=== PATIENT | male | born 1945 | race Caucasian/White ===

== ENCOUNTER 2017-02-21 00:10 | Emergency (ER) | payer MEDICARE, OTHER ==
[~2017-02-21 00:10] MED LIST: Diphtheria,Pertussis(Acell),Tetanus Vaccine 0.5 ML SDV IM ONE; Lidocaine 1% 30 ML SDV INJECT ONE
[2017-02-21 00:20] VITALS: BP 133/93
--- NOTE | 2017-02-21 00:27 | EDM.PDOC ---
ED HPI GENERAL MEDICAL PROBLEM - General Chief Complaint: Head Injury Stated Complaint: AMBULANCE Time Seen by Provider: 02/21/17 00:22 Source of Information: Reports: Patient, EMS History Limitations: Reports: No Limitations - History of Present Illness INITIAL COMMENTS - FREE TEXT/NARRATIVE: EMS states was called to scene of pt falling in bar, no known LOC. pt unable to recall what happened. intox but co-op enough for suture and wants to go home states he's ok. - Related Data Allergies Allergy/AdvReac Type Severity Reaction Status Date / Time No Known Allergies Allergy Verified 02/21/17 00:20 Home Meds: Home Meds Docusate Sodium/Sennosides [Senna Plus] 1 tab PO BEDTIME #30 tablet 08/02/14 [Rx ] oxyCODONE 5 mg PO Q6H PRN #60 tablet 08/02/14 [Rx] Past Medical History - Past Surgical History Other Musculoskeletal Surgeries/Procedures:: right tib Fx 60 years ago Social & Family History - Tobacco Use Smoking Status *Q: Current Some Day Smoker Years of Tobacco use: 53 Used Tobacco, but Quit: No Month Tobacco Last Used: 07/22/2014 Second Hand Smoke Exposure: No - Alcohol Use Days Per Week of Alcohol Use: 2 Number of Drinks Per Day: 7 Total Drinks Per Week: 14 - Recreational Drug Use Recreational Drug Use: No - Living Situation & Occupation Living situation: Reports: , Single, Alone Occupation: Retired ED ROS GENERAL - Review of Systems Review Of Systems: ROS reveals no pertinent complaints other than HPI. ED EXAM, HEAD INJURY - Physical Exam Exam: See Below Exam Limited By: Intoxication General Appearance: Alert, WD/WN, Other (intox reasonable co-op) Head: Scalp Lacerations, Other (occiput 1 1/2" no active bleeding). No: Lopez' s Sign, Raccoon Eyes Nexus Criteria: Evidence of Intoxication. No: Posterior, Midline Cervical Tenderness, Altered Level of Consciousness, Focal Neurological Deficit, Painful Distraction Injuries Eyes: Bilateral Eye: PERRL (pupils ess ER @ 4mm) Ears: Normal External Exam, Normal Canal, Hearing Grossly Normal, Normal TMs Throat/Mouth: Normal Voice, No Airway Compromise Neck: Non-Tender, Full Range of Motion Respiratory: No Respiratory Distress Cardiovascular: Regular Rate, Rhythm GI/Abdominal Exam: Soft, Non-Tender Neurologic: No Motor/Sensory Deficits, Alert, Normal Mood/Affect, Oriented x 3 Skin: Normal Color, Warm/Dry - [place]air Coma Score Best Eye Response (Denair): (4) Open Spontaneously Best Verbal Response ([place]): (5) Oriented Best Motor Response ([place]): (6) Obeys Commands Nay Total: 15 ED LACERATION/WOUND & JAMI PROC - Laceration/Wound Repair Posterior Head Lac/wound length in cm: 3 (occiput) Appearance: Subcutaneous, Linear, Clean Anesthetic Type: Local Local Anesthesia - Lidocaine (Xylocaine): 1% Plain Local Anesthetic Volume: 5cc Skin Prep: Chlorhexidine (Hibiciens) Exploration/Debridement/Repair: Wound Explored, In a Bloodless Field, No Foreign Material Found Closed with: Sutures Suture Size: 3-0 Suture Type: Nylon, Interrupted Sterile Dressing Applied: None Tetanus Status Addressed: Yes Complications: No Course - Vital Signs Last Recorded V/S: Last Vital Signs Temp 36.2 C 02/21/17 00:14 Pulse 63 02/21/17 00:14 Resp 16 02/21/17 00:14 BP 133/93 H 02/21/17 00:14 Pulse Ox 98 02/21/17 00:14 - Orders/Labs/Meds Orders: Active Orders 24 hr Category Date Time Status Vaccines to be Administered [RC] PER UNIT ROUTINE Care 02/21/17 00:05 Active Meds: Medications Discontinued Medications Generic Name Dose Route Start Last Admin Trade Name Saniya PRN Reason Stop Dose Admin Diphtheria/Tetanus/Acell Pertussis 0.5 ml 02/21/17 00:05 Adacel IM 02/21/17 00:06 .ONCE ONE Lidocaine HCl 30 ml 02/21/17 00:05 Xylocaine-Mpf 1% INJECT 02/21/17 00:06 ONETIME ONE - Re-Assessments/Exams Free Text/Narrative Re-Assessment/Exam: 02/21/17 00:56 results discussed with pt who states he knows he is fine. PD arrived pt settled down. Departure - Departure Time of Disposition: 00:56 Disposition: Home, Self-Care 01 Condition: Good Clinical Impression: Occipital scalp laceration Qualifiers: Encounter type: initial encounter Qualified Code(s): S01.01XA - Laceration without foreign body of scalp, initial encounter - Discharge Information Instructions: Head Injury, Adult, [id number] Forms: ED Department Discharge Additional Instructions: 1) suture removal 10 days 2) keep wound clean dry 3) recheck if develops head injury symptoms 4) don't drink alcohol - My Orders Last 24 Hours: My Active Orders 02/21/17 00:05 Vaccines to be Administered [RC] PER UNIT ROUTINE - Assessment/Plan Last 24 Hours: My Active Orders 02/21/17 00:05 Vaccines to be Administered [RC] PER UNIT ROUTINE
== END 2017-02-21 01:00 | disposition home or self-care (01) ==
LOC: DL.ED 00:10
DX: S01.01XA Laceration without foreign body of scalp, initial encounter (principal); Z23 Encounter for immunization; W19.XXXA Unspecified fall, initial encounter
CPT/HCPCS: 12002; 70450; 90715; 99282; 99283

== ENCOUNTER 2017-09-01 06:09 | Day surgery (SDC) | payer MEDICARE, OTHER ==
[~2017-09-01 06:09] MED LIST changes: +Dextrose 5%-0.45% NaCl 1,000 ML IV SCH; -Diphtheria,Pertussis(Acell),Tetanus Vaccine 0.5 ML SDV IM ONE; -Lidocaine 1% 30 ML SDV INJECT ONE; +Sodium Chloride 0.9% 10 ML Syringe FLUSH PRN
[2017-09-01] MEDS ORDERED: fentaNYL 100 MCG/2 ML SDV IV ONE ×6 (06:10→08:23)
[2017-09-01] MEDS ORDERED: Midazolam 1 MG/ML 2 ML SDV IV ONE ×8 (06:10→08:20)
[2017-09-01] MEDS ORDERED: fentaNYL 100 MCG/2 ML SDV ONE (06:14)
[2017-09-01] MEDS ORDERED: Midazolam 1 MG/ML 2 ML SDV ONE (06:14)
--- NOTE | 2017-09-01 09:57 | OR ---
DATE: 09/01/2017 PROCEDURES: Total colonoscopy and multiple pinch biopsies. INSTRUMENTS USED: CF-H180 AL Olympus video colonoscope and PCF-H180 AL Olympus video colonoscope. PREMEDICATIONS: Fentanyl 175 mcg intravenous, Versed 5 mg intravenous. Nasal O2 cannula. The procedure was done under pulse oximetry, BP recording, and ekg monitor tech. INDICATION: The patient with unexplained chronic diarrhea, not responsive to medical measures. Colonoscopic examination is done for detection of any polypoid lesions and removal. Biopsies to be obtained for any evidence of microscopic colitis. Endoscopic hemostasis therapy if needed. DESCRIPTION OF PROCEDURE: Initial rectal exam was unremarkable. Rigid anoscopy was normal. The CF-H180 AL Olympus video colonoscope was passed with ease. Numerous scattered diverticula were noted with associated deformity. Long loops of the redundant colon noted, and the scope could not be passed beyond the hepatic flexure, so the scope was withdrawn and replaced by PCF-H180 AL Olympus video colonoscope. No stricture. No vascular ectasia. No large isolated ulcerations seen. No evidence of diffuse inflammatory bowel disease in the form of friability, contact bleeding, or ulcerations. The examination was quite prolonged due to the tortuosity of the colon. The preparation was inadequate, and there was quite a bit of fecal material that had to be aspirated. Limited examination of the cecum due to the presence of large amount of fecal material. Photographs were obtained. Probing the proximal sides of folds and flexures, using adequate distention and clearing up the stool material, withdrawal of the scope was made. Multiple pinch biopsies were taken from the normal-appearing mucosa of the mid transverse colon, descending colon, and rectosigmoid, and sent for any histopathologic evidence of microscopic colitis. No bleeding was noted from any of the visualized areas at the completion of examination. IMPRESSION: Diverticulosis. The patient tolerated the procedure well. [facility] /[id number]
[2017-09-01 12:00] VITALS: BP 129/76
== END 2017-09-01 10:40 | disposition home or self-care (01) ==
LOC: DL.ENDO 06:09
PROVIDERS: ATTEND Internal Medicine Gastroenterology
DX: K52.9 Noninfective gastroenteritis and colitis, unspecified (principal); D72.820 Lymphocytosis (symptomatic); F17.210 Nicotine dependence, cigarettes, uncomplicated; E78.00 Pure hypercholesterolemia, unspecified
CPT/HCPCS: 45380; J2250; J3010; J7042

== ENCOUNTER 2024-06-29 14:22 | Emergency (ER) | payer MEDICARE ==
[2024-06-29] MEDS ORDERED: Lidocaine 2% Jelly 10 ML Urojet ONE (14:37)
[2024-06-29] MEDS ORDERED: Lidocaine 2% Jelly 10 ML Urojet MUCMEM ONE (14:38)
[2024-06-29 14:55] VITALS: BP 157/79; PULSE 64
[2024-06-29 15:11] LABS: APPEARANCE,URINE CLEAR (CLEAR); BILIRUBIN,URINE NEGATIVE (NEGATIVE); COLOR,URINE YELLOW (YELLOW); GLUCOSE,URINE NEGATIVE (NEGATIVE); KETONES,URINE NEGATIVE (NEGATIVE); LEUKOCYTE ESTERASE,URINE NEGATIVE (NEGATIVE); NITRITE,URINE NEGATIVE (NEGATIVE); OCCULT BLOOD,URINE NEGATIVE (NEGATIVE); PH,URINE 5.5 (5.0-9.0); PROTEIN,URINE NEGATIVE (NEGATIVE); UROBILINOGEN,URINE 0.2 mg/dL (0.2-1.0)
== END 2024-06-29 15:37 | disposition home or self-care (01) ==
LOC: DL.ED 14:22
DX: N40.1 Benign prostatic hyperplasia with lower urinary tract symptoms (principal); R33.8 Other retention of urine; E78.00 Pure hypercholesterolemia, unspecified; Z79.82 Long term (current) use of aspirin; Z79.899 Other long term (current) drug therapy; Z79.51 Long term (current) use of inhaled steroids; Z79.01 Long term (current) use of anticoagulants
CPT/HCPCS: 51702; 81003; 99284

== ENCOUNTER 2024-07-04 14:36 | Emergency (ER) | payer MEDICARE ==
[2024-07-04 14:52] VITALS: BP 147/61; PULSE 68
[2024-07-04 15:18] LABS: BASOPHILS PERCENT AUTO 0.5 % (0.0-1.0); EOSINOPHILS PERCENT AUTO 4.6 % (1.0-3.0); HEMATOCRIT 39.8 % (40.0-54.0); HEMOGLOBIN 13.3 g/dL (14.0-18.0); LYMPHOCYTES PERCENT AUTO 27.3 % (20.5-50.1); MEAN CORPUSCULAR HEMOGLOBIN 32.1 pg (27.0-34.0); MEAN CORPUSCULAR HGB CONC 33.4 g/dL (33.0-35.0); MEAN CORPUSCULAR VOLUME 96.1 fL (80-100); MONOCYTES PERCENT AUTO 13.7 % (2-8); NEUTROPHILS PERCENT AUTO 53.9 % (42.2-75.2); PLATELET COUNT,PLT 222 10^3/uL (150-450); RED BLOOD CELL COUNT 4.14 10^6/uL (4.6-6.2); WHITE BLOOD CELL COUNT,WBC 5.5 10^3/uL (5.0-10.0)
[2024-07-04 15:34] LABS: ALBUMIN 3.3 g/dL (3.4-5.0); ANION GAP 12.8 mEq/L (7-13); BILIRUBIN TOTAL 0.4 mg/dL (0.2-1.0); BUN/CREATININE RATIO 17.7 (No establ ref range); CALCIUM 9.2 mg/dL (8.5-10.1); CREATININE 1.24 mg/dL (0.70-1.30); EST CRCL DRUG DOSING (CG) 54.76 mL/min; POTASSIUM,K 3.8 mmol/L (3.5-5.1); PROTEIN TOTAL,TP 7.2 g/dL (6.4-8.2)
[2024-07-04 15:39] LABS: APPEARANCE,URINE TURBID (CLEAR); COLOR,URINE RED (YELLOW); GLUCOSE,URINE NEGATIVE (NEGATIVE); PROTEIN,URINE 100 (NEGATIVE)
[2024-07-04 15:40] LABS: BILIRUBIN,URINE NEGATIVE (NEGATIVE); KETONES,URINE NEGATIVE (NEGATIVE); LEUKOCYTE ESTERASE,URINE NEGATIVE (NEGATIVE); NITRITE,URINE NEGATIVE (NEGATIVE); OCCULT BLOOD,URINE LARGE (NEGATIVE); UROBILINOGEN,URINE 0.2 mg/dL (0.2-1.0)
[2024-07-04 15:42] LABS: A/G RATIO 0.85
[2024-07-04 15:46] LABS: BACTERIA,URINE FEW /HPF (0-FEW/HPF); EPITHELIAL CELLS,URINE FEW /HPF (NOT SEEN); RBC,URINE PACKED /HPF (0-5); WBC,URINE 0-5 /HPF (0-5/HPF)
== END 2024-07-04 15:51 | disposition home or self-care (01) ==
LOC: DL.ED 14:36
DX: R31.9 Hematuria, unspecified (principal); I48.91 Unspecified atrial fibrillation; E78.00 Pure hypercholesterolemia, unspecified; Z79.899 Other long term (current) drug therapy; Z79.82 Long term (current) use of aspirin; Z79.01 Long term (current) use of anticoagulants
CPT/HCPCS: 36415; 80053; 81001; 85025; 99283

== ENCOUNTER 2024-08-02 16:58 | Emergency (ER) | payer MEDICARE ==
[2024-08-02 17:09] VITALS: BP 136/75; PULSE 70
[2024-08-02 17:31] LABS: APPEARANCE,URINE CLOUDY (CLEAR); BILIRUBIN,URINE NEGATIVE (NEGATIVE); COLOR,URINE YELLOW (YELLOW); GLUCOSE,URINE NEGATIVE (NEGATIVE); KETONES,URINE NEGATIVE (NEGATIVE); LEUKOCYTE ESTERASE,URINE MODERATE (NEGATIVE); NITRITE,URINE NEGATIVE (NEGATIVE); OCCULT BLOOD,URINE TRACE-INTACT (NEGATIVE); PH,URINE 5.5 (5.0-9.0); PROTEIN,URINE NEGATIVE (NEGATIVE); UROBILINOGEN,URINE 0.2 mg/dL (0.2-1.0)
[2024-08-02 17:34] LABS: AMORPHOUS SEDIMENT,URINE FEW /HPF (NOT SEEN); BACTERIA,URINE MANY /HPF (0-FEW/HPF); EPITHELIAL CELLS,URINE FEW /HPF (NOT SEEN); MUCUS,URINE FEW /LPF (NOT SEEN); WBC,URINE SEMI-PACKED /HPF (0-5/HPF)
== END 2024-08-02 17:48 | disposition home or self-care (01) ==
LOC: DL.ED 16:58 → EEVIPCON 16:58 → DL.ED 17:48
DX: N40.1 Benign prostatic hyperplasia with lower urinary tract symptoms (principal); N39.0 Urinary tract infection, site not specified; R33.9 Retention of urine, unspecified; E78.00 Pure hypercholesterolemia, unspecified; Z79.899 Other long term (current) drug therapy; Z79.82 Long term (current) use of aspirin
CPT/HCPCS: 51702; 81001; 87086; 87088; 87186; 99283